=== PATIENT | female | born 1955 | race Native Hawaiian/Other Pacific Islander ===

== ENCOUNTER 2019-11-24 19:10 | Emergency (ER) | payer OTHER ==
[~2019-11-24] VITALS: Ht 167.6 cm; Wt 76.7 kg
[2019-11-24 19:34] VITALS: BP 138/75; TEMP 99.8
[2019-11-24 20:07] LABS: PLATELET COUNT 249 K/uL (152-353)
[2019-11-24 20:14] LABS: POTASSIUM 3.9 mmol/L (3.6-5.2)
[2019-11-25] MEDS ORDERED: DIPH25CA90 PO (01:17)
[2019-11-25] MEDS ORDERED: NEURONTIN 100M100 MG PO (01:21)
[2019-11-25] MEDS ORDERED: HYDRALAZINE50 MG PO (01:23)
[2019-11-25] MEDS ORDERED: DOCU SOFT100 MG PO (01:25)
[2019-11-25] MEDS ORDERED: [UNRECOGNIZED DRUG - OTHER] PO (01:28)
[2019-11-25] MEDS ORDERED: OMEPRAZOLE20 M1 PO (01:33)
[2019-11-25] MEDS ORDERED: MELOXICAM7.5 MG PO (01:35)
[2019-11-25] MEDS ORDERED: LEVE500T5 PO (01:39)
[2019-11-25] MEDS ORDERED: MYRBETRIQ50 MG PO (01:41)
[2019-11-25] MEDS ORDERED: AMLODIPINE BESYLATE PO (01:42)
[2019-11-25] MEDS ORDERED: ARIPIPRAZOLE15 MG PO (01:44)
[2019-11-25] MEDS ORDERED: CITALOPRAM20 M1 PO (01:46)
[2019-11-25] MEDS ORDERED: HALO5INJ3 IM (01:48)
[2019-11-25] MEDS ORDERED: DIVALPROEX500 M1 PO (01:51)
== END 2019-11-24 20:57 | disposition other institution (70) ==
LOC: ED 19:10
PROVIDERS: Family Medicine
DX: F03.91 Unspecified dementia, unspecified severity, with behavioral disturbance (principal); F20.89 Other schizophrenia; Z03.818 Encounter for observation for suspected exposure to other biological agents ruled out; Z04.6 Encounter for general psychiatric examination, requested by authority
CPT/HCPCS: 80053; 80307; 81000; 85027; 87635; 99285; U0002